=== PATIENT | female | born 1980 ===

== ENCOUNTER 2019-01-21 18:07 | Emergency (ER) | payer MEDICAID ==
[2019-01-21 18:07] VITALS: BMI 32.5
[2019-01-21 18:49] VITALS: BP 128/62; PULSE 79; RESP 16; TEMP 98.8; O2SAT 100
[2019-01-21] MEDS ORDERED: Sodium Chloride 0.9% 1,000 ML IV STA (20:28)
[2019-01-21] MEDS ORDERED: Dexamethasone 10 MG in Sodium Chloride 0.9% 50 ML IV STA (20:28)
[2019-01-21] MEDS ORDERED: Iohexol 300 100 ML IJ ONE (20:52)
[2019-01-21] MEDS ORDERED: Sodium Chloride 0.9% 0 ML IV ONE (20:52)
[2019-01-21 21:08] LABS: BASO # 0.1 K/uL (0.0-0.2); BASO % 0.7 % (0.0-2.0); EOS # 0.1 K/uL (0.0-0.7); EOS % 1.1 % (0.0-4.0); HEMOGLOBIN 13.6 g/dL (12.0-16.0); LYMPH # 2.6 K/uL (1.0-4.3); LYMPH % 20.4 % (20.0-40.0); MEAN CELL VOLUME 91.3 fl (81.0-99.0); MEAN CORPUSCULAR HEMOGLOBIN 30.7 pg (27.0-31.0); MEAN CORPUSCULAR HGB CONC 33.6 g/dL (33.0-37.0); MEAN PLATELET VOLUME 9.5 fl (7.2-11.7); MONO # 0.9 K/uL (0.0-0.8); MONO % 7.2 % (0.0-10.0); NEUT # 8.8 K/uL (1.8-7.0); NEUT % 70.6 % (50.0-75.0); NRBC % 0.1 % (0.0-0.0); RBC 4.42 Mil/uL (3.80-5.20); RED CELL DISTRIBUTION WIDTH 13.2 % (11.5-14.5); WHITE BLOOD COUNT 12.5 K/uL (4.8-10.8)
[2019-01-21 21:16] LABS: ALB/GLOB RATIO 1.1 (1.0-2.1); ALBUMIN 4.1 g/dL (3.5-5.0); ALT/SGPT 29 U/L (9-52); AST/SGOT 20 U/L (14-36); BLOOD UREA NITROGEN 14 mg/dl (7-17); CALCIUM 9.1 mg/dL (8.4-10.2); GFR NON-AFRICAN AMERICAN > 60
[2019-01-21 21:47] LABS: T3 1.58 nmol/L (1.49-2.60)
--- NOTE | 2019-01-21 21:50 | ED PDOC ---
HPI: CCC, URI, Sore Throat Time Seen by Provider: 01/21/19 19:51 Chief Complaint (Nursing): ENT Problem Chief Complaint (Provider): ENT Problem History Per: Patient History/Exam Limitations: no limitations Onset/Duration Of Symptoms: Days (x5) Current Symptoms Are (Timing): Still Present Additional Complaint(s): 38 year old female with past history of cold thyroid nodules, presents to the emergency department with a complaint of left neck mass associated with sore throat, difficulty swallowing, and swelling for 5 days. Patient states she saw her primary doctor yesterday whom prescribed zpack, cough syrup, and flonase. She reports medications has not helped and feels that her symptoms became worse. Otherwise, she denies fever, chills, congestion, cough, weight loss, or receiving flu shot this season. PCP: Dr. Lindsey Joe Past Medical History Reviewed: Historical Data, Nursing Documentation, Vital Signs Vital Signs: Last Vital Signs Temp 98.8 F 01/21/19 18:49 Pulse 79 01/21/19 18:49 Resp 16 01/21/19 18:49 BP 128/62 01/21/19 18:49 Pulse Ox 100 01/21/19 18:49 - Medical History PMH: Arthritis (HANDS), Gastritis, Hyperthyroidism Denies: Depression, Chronic Kidney Disease - Surgical History Surgical History: Cholecystectomy - Family History Family History: States: Unknown Family Hx - Home Medications Home Medications: Ambulatory Orders Medication Instructions Recorded Ibuprofen [Motrin] 600 mg PO Q6 PRN #20 tab 09/30/14 Docusate Sodium [Colace] 100 mg PO Q8 PRN 10/20/14 Oxycodone HCl/Acetaminophen 1 .8 PO Q8 PRN 10/20/14 [Percocet 325 mg-5 mg] Cyclobenzaprine HCl [Flexeril] 10 mg PO BID PRN #12 tab 06/17/15 Ibuprofen [Motrin Tab] 800 mg PO Q6H PRN #20 tab 06/17/15 Oxycodone HCl/Acetaminophen 1 tab PO Q6H PRN #15 tab 06/17/15 [Percocet 325 mg-5 mg] Cyclobenzaprine [Cyclobenzaprine 10 mg PO Q8 PRN #30 tab 01/24/16 HCl] Naproxen [Naprosyn] 500 mg PO BID PRN #30 tab 01/24/16 predniSONE [predniSONE Tab] 60 mg PO QAM #12 tab 01/21/19 - Allergies Allergies/Adverse Reactions: Allergies Allergy/AdvReac Type Severity Reaction Status Date / Time Penicillins Allergy RASH Verified 01/21/19 18:49 Review of Systems ROS Statement: Except As Marked, All Systems Reviewed And Found Negative Constitutional: Negative for: Fever, Chills, Weight loss ENT: Positive for: Throat Pain (with left neck mass). Negative for: Nose Congestion Respiratory: Negative for: Cough Physical Exam - Reviewed Nursing Documentation Reviewed: Yes Vital Signs Reviewed: Yes - Physical Exam Appears: Positive for: No Acute Distress Head Exam: Positive for: ATRAUMATIC, NORMAL INSPECTION, NORMOCEPHALIC Skin: Positive for: Normal Color Eye Exam: Positive for: Normal appearance ENT: Positive for: Pharyngeal Erythema (mild). Negative for: Tonsillar Swelling Neck: Positive for: Supple (4-5cm left lateral mass consistent with enlarged anterior spinal node. (+) tender on palpation but no overlying erythema or warmth) Cardiovascular/Chest: Positive for: Regular Rate, Rhythm Respiratory: Positive for: Normal Breath Sounds. Negative for: Respiratory D istress Neurologic/Psych: Positive for: Alert, Oriented. Negative for: Motor/Sensory Deficits - Laboratory Results Result Diagrams: 01/21/19 20:59 01/21/19 20:59 Lab Results: Total Bilirubin 0.2 mg/dl (0.2-1.3) 01/21/19 20:59 AST 20 U/L (14-36) 01/21/19 20:59 ALT 29 U/L (9-52) 01/21/19 20:59 Alkaline Phosphatase 68 U/L (38-126) 01/21/19 20:59 Total Protein 7.7 G/DL (6.3-8.2) 01/21/19 20:59 Albumin 4.1 g/dL (3.5-5.0) 01/21/19 20:59 Globulin 3.7 gm/dL (2.2-3.9) 01/21/19 20:59 Albumin/Globulin Ratio 1.1 (1.0-2.1) 01/21/19 20:59 - ECG O2 Sat by Pulse Oximetry: 100 (RA) Pulse Ox Interpretation: Normal Medical Decision Making Medical Decision Making: Initial Impression: 38 year old female with neck mass in setting of thyroid nodules. Initial Plan: * Labs * Decadron inj 50ml IV * IV fluids * Toradol 30mg IV * Throat culture * Mccreary * Influenza AB Time: 2135 --Labs reviewed: (+) EBV, otherwise, no significant clinical abnormality. Findings discussed with patient who states that she feels comfortable not to have CT performed. Upon provider reevaluation, patient is medically stable, reports feeling better, and requires no further treatment in the ED at this time. Patient will be discharged home. Counseling was provided and all questions were answered regarding diagnosis. There is agreement to discharge plan. Return if symptoms persist or worsen. Clinical Impression: mononucleosis Scribe Attestation: Documented by Katie Sagastume, acting as a scribe for Héctor Herman MD. Provider Scribe Attestation: All medical record entries made by the Scribe were at my direction and personally dictated by me. I have reviewed the chart and agree that the record accurately reflects my personal performance of the history, physical exam, medical decision making, and the department course for this patient. I have also personally directed, reviewed, and agree with the discharge instructions and disposition. Disposition - Clinical Impression Clinical Impression: Mononucleosis - Patient ED Disposition Is Patient to be Admitted: No Counseled Patient/Family Regarding: Studies Performed, Diagnosis, Rx Given - Disposition Disposition: Routine/Home Disposition Time: 21:36 Condition: STABLE Prescriptions: predniSONE [predniSONE Tab] 60 mg PO QAM #12 tab Instructions: Mononucleosis Forms: [employer] (Mongolian)
== END 2019-01-21 23:07 | disposition home or self-care (01) ==
LOC: H.ER 18:07
DX: B27.90 Infectious mononucleosis, unspecified without complication (principal); Z88.0 Allergy status to penicillin; E05.20 Thyrotoxicosis with toxic multinodular goiter without thyrotoxic crisis or storm
CPT/HCPCS: 80053; 81025; 83605; 83735; 84436; 84443; 84480; 85025; 86308; 87070; 87430; 87804; 96360; 99283; J1100; J1885; J7030

== ENCOUNTER 2019-02-04 18:53 | Emergency (ER) | payer MEDICAID ==
[2019-02-04 18:54] VITALS: BMI 32.5
[2019-02-04] MEDS ORDERED: Tdap Vaccine 0.5 ml Vial (10-64 yrs) IM ONE ×2 (20:17→20:40)
[2019-02-04] MEDS ORDERED: Naproxen 500 MG TAB PO ONE ×2 (20:31→20:40)
--- NOTE | 2019-02-04 20:32 | ED PDOC ---
Upper Extremity Pain/Injury Time Seen by Provider: 02/04/19 20:06 Chief Complaint (Nursing): Finger,Hand,&Wrist Chief Complaint (Provider): left thumb pain History Per: Patient History/Exam Limitations: no limitations Onset/Duration Of Symptoms: Days (4) Current Symptoms Are (Timing): Still Present Additional Complaint(s): 38 y/o female presents for evaluation of pain to left thumb. Patient states she was bitten on bottom of left thumb on 01/22; saw her primary doctor in 01/24 and was prescribed Clindamycin which patient admits to only taking for 4 days before stopping due to stomach upset. Patient states as of 4 days ago she noticed some swelling and pain to tip of thumb. Denies fever, drainage, numbness/weakness left upper extremity. Last tetanus unknown Past Medical History Reviewed: Historical Data, Nursing Documentation, Vital Signs Vital Signs: Last Vital Signs Temp 98.4 F 02/04/19 19:39 Pulse 67 02/04/19 19:39 Resp 16 02/04/19 19:39 BP 132/84 02/04/19 19:39 Pulse Ox 100 02/04/19 19:39 - Medical History PMH: Arthritis (HANDS), Gastritis, Hyperthyroidism Denies: Depression, Chronic Kidney Disease - Surgical History Surgical History: Cholecystectomy - Family History Family History: States: Unknown Family Hx - Home Medications Home Medications: Ambulatory Orders Medication Instructions Recorded Ibuprofen [Motrin] 600 mg PO Q6 PRN #20 tab 09/30/14 Docusate Sodium [Colace] 100 mg PO Q8 PRN 10/20/14 Oxycodone HCl/Acetaminophen 1 .8 PO Q8 PRN 10/20/14 [Percocet 325 mg-5 mg] Cyclobenzaprine HCl [Flexeril] 10 mg PO BID PRN #12 tab 06/17/15 Ibuprofen [Motrin Tab] 800 mg PO Q6H PRN #20 tab 06/17/15 Oxycodone HCl/Acetaminophen 1 tab PO Q6H PRN #15 tab 06/17/15 [Percocet 325 mg-5 mg] Cyclobenzaprine [Cyclobenzaprine 10 mg PO Q8 PRN #30 tab 01/24/16 HCl] Naproxen [Naprosyn] 500 mg PO BID PRN #30 tab 01/24/16 predniSONE [predniSONE Tab] 60 mg PO QAM #12 tab 01/21/19 Naproxen [Naprosyn] 500 mg PO Q12 PRN #14 tablet 02/04/19 - Allergies Allergies/Adverse Reactions: Allergies Allergy/AdvReac Type Severity Reaction Status Date / Time Penicillins Allergy RASH Verified 01/21/19 18:49 Review of Systems ROS Statement: Except As Marked, All Systems Reviewed And Found Negative Musculoskeletal: Positive for: Hand Pain (left thumb) Physical Exam - Reviewed Nursing Documentation Reviewed: Yes Vital Signs Reviewed: Yes - Physical Exam Appears: Positive for: Well, Non-toxic, No Acute Distress Skin: Positive for: Normal Color Pulses-Radial (L): 2+ Pulses-Radial (R): 2+ Extremity: Positive for: Normal ROM, Other (healing bite wound medial aspect proximal left thumb; no drainage, tenderness, surrounding edema/erythema. or streaking noted. + fluid-filled bleb noted lateral aspect distal left thumb, + tenderness. No erythema, warmth, streaking) Neurological/Psych: Positive for: Awake, Alert, Oriented (x3) - ECG O2 Sat by Pulse Oximetry: 100 - Progress ED Course And Treament: -upreg -Adacel IM -Naproxen PO -wound care Area cleaned with alcohol prep pad; small incision made using 25 gauge needle with drainage of clear-fluid Bacitracin applied, bandage applied Patient was instructed on warm soaks and follow up with PMD in 2-3 days Return precautions given, including fever, redness around area, yellow drainage from area, or other concerning symptoms Disposition - Clinical Impression Clinical Impression: Blister of left thumb - Patient ED Disposition Is Patient to be Admitted: No Counseled Patient/Family Regarding: Diagnosis, Need For Followup - Disposition Disposition: Routine/Home Disposition Time: 20:39 Condition: IMPROVED Additional Instructions: Soak left thumb in warm water 3 times daily Follow up with primary doctor in 2-3 days Return to ED for fever, increased pain/swelling, redness to area, yellow yesenia inage from area, or other concerning symptoms Prescriptions: Naproxen [Naprosyn] 500 mg PO Q12 PRN #14 tablet PRN Reason: Pain, Moderate (4-7) Instructions: Blisters
[2019-02-04 22:20] VITALS: BP 129/76; PULSE 72; RESP 18; TEMP 98.2; O2SAT 99
== END 2019-02-04 21:20 | disposition home or self-care (01) ==
LOC: H.ER 18:53
DX: S60.322A Blister (nonthermal) of left thumb, initial encounter (principal); Z23 Encounter for immunization

== ENCOUNTER 2019-04-10 19:55 | Emergency (ER) | payer MEDICAID ==
[2019-04-10 19:55] VITALS: BMI 32.5
--- NOTE | 2019-04-10 20:43 | ED PDOC ---
HPI: Dental Pain/Injury Time Seen by Provider: 04/10/19 20:26 Chief Complaint (Nursing): Dental Pain Chief Complaint (Provider): mouth/face pain History Per: Patient History/Exam Limitations: no limitations Onset/Duration Of Symptoms: Days (2) Current Symptoms Are (Timing): Still Present Additional Complaint(s): 38 y/o female presents for evaluation of left upper mouth and face pain x 2 days. Patient states she had a root canal on (first molar?) on Sunday and was sent home with Clindamycin 150mg Q6H and Ibuprofen 600mg Q4-6H. Patient states that night she noticed pain to left upper mouth and left side of face, with mild swelling. Patient states since then pain and swelling has worsened, went back to Dentist today and was prescribed Tylenol #3 and advised to continue antibiotics but if symptoms worsened to go to ED. Denies fever, vision changes, difficulty speaking/swallowing, neck pain. Last dose Ibuprofen taken prior to arrival. Past Medical History Reviewed: Historical Data, Nursing Documentation, Vital Signs Vital Signs: Last Vital Signs Temp 99.1 F 04/10/19 20:12 Pulse 70 04/10/19 20:12 Resp 18 04/10/19 20:12 BP 136/86 04/10/19 20:12 Pulse Ox 99 04/10/19 20:12 Primary Care Provider: Lindsey Joe - Medical History PMH: Arthritis (HANDS), Gastritis, Hyperthyroidism Denies: Depression, Chronic Kidney Disease - Surgical History Surgical History: Cholecystectomy - Family History Family History: States: Unknown Family Hx - Home Medications Home Medications: Ambulatory Orders Medication Instructions Recorded Ibuprofen [Motrin] 600 mg PO Q6 PRN #20 tab 09/30/14 Docusate Sodium [Colace] 100 mg PO Q8 PRN 10/20/14 Oxycodone HCl/Acetaminophen 1 .8 PO Q8 PRN 10/20/14 [Percocet 325 mg-5 mg] Cyclobenzaprine HCl [Flexeril] 10 mg PO BID PRN #12 tab 06/17/15 Ibuprofen [Motrin Tab] 800 mg PO Q6H PRN #20 tab 06/17/15 Oxycodone HCl/Acetaminophen 1 tab PO Q6H PRN #15 tab 06/17/15 [Percocet 325 mg-5 mg] Cyclobenzaprine [Cyclobenzaprine 10 mg PO Q8 PRN #30 tab 01/24/16 HCl] Naproxen [Naprosyn] 500 mg PO BID PRN #30 tab 01/24/16 predniSONE [predniSONE Tab] 60 mg PO QAM #12 tab 01/21/19 Naproxen [Naprosyn] 500 mg PO Q12 PRN #14 tablet 02/04/19 Clindamycin [Cleocin] 300 mg PO QID #28 cap 04/10/19 Sulfamethoxazole/Trimethoprim 1 tab PO BID #14 tab 04/10/19 [Bactrim DS 800 mg-160 mg] - Allergies Allergies/Adverse Reactions: Allergies Allergy/AdvReac Type Severity Reaction Status Date / Time Penicillins Allergy RASH Verified 01/21/19 18:49 Review of Systems ROS Statement: Except As Marked, All Systems Reviewed And Found Negative ENT: Positive for: Mouth Pain Physical Exam - Reviewed Nursing Documentation Reviewed: Yes Vital Signs Reviewed: Yes - Physical Exam Appears: Positive for: Well, Non-toxic, No Acute Distress Head Exam: Positive for: ATRAUMATIC, NORMAL INSPECTION, NORMOCEPHALIC Skin: Positive for: Normal Color Eye Exam: Positive for: Normal appearance, EOMI, PERRL ENT: Positive for: TM Is/Are (clear bilaterally), Other (Filling noted left upper first molar; + surrounding gingival tenderness. No abscess noted. + left facial edema, erythema extending up to inferior orbit; no fluctuance, crepitus noted) Neck: Positive for: Normal, Painless ROM Cardiovascular/Chest: Positive for: Regular Rate, Rhythm Respiratory: Positive for: Normal Breath Sounds Gastrointestinal/Abdominal: Positive for: Normal Exam Back: Positive for: Normal Inspection Extremity: Positive for: Normal ROM Neurological/Psych: Positive for: Awake, Alert, Oriented (x3) - Laboratory Results Result Diagrams: 04/10/19 20:53 04/10/19 20:53 - ECG O2 Sat by Pulse Oximetry: 99 - Progress ED Course And Treament: -cbc -cmp -lactic acid -blood culture -IV toradol -IV clindamycin Patient states she is feeling better on re-eval Case discussed with ED attending Dr. Neri, will increase clindamycin dose and add bactrim DS Patient educated on findings, discharged with rx Clindamycin (instructed to use in place of current clindamycin rx), Bactrim DS Follow up with Dentist within 2 days REturn precautions, including fever, increase pain/redness/swelling, or other concerning symptoms explained to patient, who demonstrates full understanding Disposition - Clinical Impression Clinical Impression: Dental infection - Patient ED Disposition Is Patient to be Admitted: No Counseled Patient/Family Regarding: Studies Performed, Diagnosis, Need For Followup, Rx Given - Disposition Disposition: Routine/Home Disposition Time: 23:39 Condition: IMPROVED Additional Instructions: Follow up with your Dentist within 2 days Take medication as directed Return to ED for fever, worsening pain/redness/swelling, or other concerning symptoms Prescriptions: Clindamycin [Cleocin] 300 mg PO QID #28 cap Sulfamethoxazole/Trimethoprim [Bactrim DS 800 mg-160 mg] 1 tab PO BID #14 tab Instructions: Dental Pain Forms: [employer] (Mauritian)
[2019-04-10 21:25] LABS: BASO # 0.1 K/uL (0.0-0.2); EOS # 0.1 K/uL (0.0-0.7); EOS % 1.5 % (0.0-4.0); HEMOGLOBIN 13.6 g/dL (12.0-16.0); LYMPH # 2.7 K/uL (1.0-4.3); LYMPH % 28.5 % (20.0-40.0); MEAN CORPUSCULAR HEMOGLOBIN 31.2 pg (27.0-31.0); MEAN CORPUSCULAR HGB CONC 33.9 g/dL (33.0-37.0); MEAN PLATELET VOLUME 9.3 fl (7.2-11.7); MONO # 0.8 K/uL (0.0-0.8); MONO % 8.2 % (0.0-10.0); NEUT # 5.7 K/uL (1.8-7.0); NEUT % 60.8 % (50.0-75.0); NRBC % 0.1 % (0.0-0.0); RBC 4.36 Mil/uL (3.80-5.20); RED CELL DISTRIBUTION WIDTH 13.2 % (11.5-14.5); WHITE BLOOD COUNT 9.3 K/uL (4.8-10.8)
[2019-04-10 21:33] LABS: ALB/GLOB RATIO 1.1 (1.0-2.1); ALBUMIN 4.1 g/dL (3.5-5.0); ALT/SGPT 20 U/L (9-52); AST/SGOT 19 U/L (14-36); BLOOD UREA NITROGEN 11 mg/dl (7-17); CALCIUM 8.8 mg/dL (8.4-10.2); GFR NON-AFRICAN AMERICAN > 60
[2019-04-10] MEDS ORDERED: Clindamycin 600mg/50ml NS 600 MG/50 ML BAG IVPB STA (21:42)
[2019-04-10] MEDS ORDERED: Clindamycin 600mg/50ml D5W 600 MG/50 ML VIAL IVPB STA (22:15)
[2019-04-10 22:43] VITALS: BP 124/75; PULSE 65; RESP 16; TEMP 98.5
[2019-04-10 23:39] VITALS: O2SAT 99
== END 2019-04-10 23:53 | disposition home or self-care (01) ==
LOC: H.ER 19:55
DX: K04.7 Periapical abscess without sinus (principal); E05.90 Thyrotoxicosis, unspecified without thyrotoxic crisis or storm; Z88.0 Allergy status to penicillin
CPT/HCPCS: 80053; 81025; 83605; 85025; 87040; 96374; 96375; 99282; J1885

== ENCOUNTER 2019-04-11 20:53 | Emergency (ER) | payer MEDICAID ==
[2019-04-11 21:19] VITALS: BMI 30.5
[2019-04-11 21:24] VITALS: BP 142/90; PULSE 65; RESP 16; TEMP 99.2; O2SAT 100
[2019-04-11] MEDS ORDERED: Clindamycin 600mg/50ml NS 600 MG/50 ML BAG IVPB STA (21:56)
[2019-04-11] MEDS ORDERED: Sodium Chloride 0.9% 1,000 ML IV STA (21:56)
[2019-04-11 22:43] LABS: VENOUS BLOOD GAS BASE EXCESS -0.3 mmol/L (0.0-2.0); VENOUS BLOOD GAS PCO2 55 mmHg (40-60); VENOUS BLOOD GAS PO2 17 mm/Hg (30-55)
--- NOTE | 2019-04-11 22:47 | ED PDOC ---
HPI: Dental Pain/Injury Time Seen by Provider: 04/11/19 21:30 Chief Complaint (Nursing): Dental Pain Chief Complaint (Provider): Dental Pain History Per: Patient History/Exam Limitations: no limitations Onset/Duration Of Symptoms: Days (x3) Current Symptoms Are (Timing): Still Present Quality: "Pain" Additional Complaint(s): 38 year old female returns today for continued swelling to left face. Patient had a root canal performed on left upper molar x3 days ago. Since then, she has had progressively worsening pain and swelling. She was initially placed on 150 mg of Clindamycin, dosage was changed yesterday in this ED. Patient was advised to return if pain or swelling worsened. PMD: Ted Iglesias Past Medical History Reviewed: Historical Data, Nursing Documentation, Vital Signs Vital Signs: Last Vital Signs Temp 99.2 F 04/11/19 21:20 Pulse 65 04/11/19 21:20 Resp 16 04/11/19 21:20 BP 142/90 04/11/19 21:20 Pulse Ox 100 04/11/19 21:20 Primary Care Provider: Ted Iglesias - Medical History PMH: Arthritis (HANDS), Gastritis, Hyperthyroidism Denies: Depression, Chronic Kidney Disease - Surgical History Surgical History: Cholecystectomy - Family History Family History: States: Unknown Family Hx - Home Medications Home Medications: Ambulatory Orders Medication Instructions Recorded Ibuprofen [Motrin] 600 mg PO Q6 PRN #20 tab 09/30/14 Docusate Sodium [Colace] 100 mg PO Q8 PRN 10/20/14 Oxycodone HCl/Acetaminophen 1 .8 PO Q8 PRN 10/20/14 [Percocet 325 mg-5 mg] Cyclobenzaprine HCl [Flexeril] 10 mg PO BID PRN #12 tab 06/17/15 Ibuprofen [Motrin Tab] 800 mg PO Q6H PRN #20 tab 06/17/15 Oxycodone HCl/Acetaminophen 1 tab PO Q6H PRN #15 tab 06/17/15 [Percocet 325 mg-5 mg] Cyclobenzaprine [Cyclobenzaprine 10 mg PO Q8 PRN #30 tab 01/24/16 HCl] Naproxen [Naprosyn] 500 mg PO BID PRN #30 tab 01/24/16 predniSONE [predniSONE Tab] 60 mg PO QAM #12 tab 01/21/19 Naproxen [Naprosyn] 500 mg PO Q12 PRN #14 tablet 02/04/19 Clindamycin [Cleocin] 300 mg PO QID #28 cap 04/10/19 Sulfamethoxazole/Trimethoprim 1 tab PO BID #14 tab 04/10/19 [Bactrim DS 800 mg-160 mg] Ketorolac Tromethamine [Toradol] 10 mg PO BID #20 tab 04/12/19 - Allergies Allergies/Adverse Reactions: Allergies Allergy/AdvReac Type Severity Reaction Status Date / Time Penicillins Allergy RASH Verified 04/11/19 21:19 Review of Systems ROS Statement: Except As Marked, All Systems Reviewed And Found Negative ENT: Positive for: Other (left upper dental pain) Physical Exam - Reviewed Nursing Documentation Reviewed: Yes Vital Signs Reviewed: Yes - Physical Exam Appears: Positive for: Well Skin: Positive for: Normal Color, Warm, Dry Eye Exam: Positive for: Normal appearance ENT: Positive for: Other (swelling to left maxilla, mild erythema appreciated, no fluctuance on exam, tenderness to gingiva of left upper maxilla) Neurological/Psych: Positive for: Awake, Alert, Oriented (x3) - Laboratory Results Result Diagrams: 04/11/19 22:45 04/11/19 22:45 Lab Results: pO2 17 mm/Hg (30-55) L 04/11/19 22:38 VBG pH 7.30 (7.32-7.43) L 04/11/19 22:38 VBG pCO2 55 mmHg (40-60) 04/11/19 22:38 VBG HCO3 22.6 mmol/L 04/11/19 22:38 VBG Total CO2 28.8 mmol/L (22-28) H 04/11/19 22:38 VBG O2 Sat (Calc) 27.1 % (40-65) L 04/11/19 22:38 VBG Base Excess -0.3 mmol/L (0.0-2.0) L 04/11/19 22:38 VBG Potassium 4.3 mmol/L (3.6-5.2) 04/11/19 22:38 Sodium 138.0 mmol/L (132-148) 04/11/19 22:38 Chloride 105.0 mmol/L (98-107) 04/11/19 22:38 Glucose 87 mg/dL (65-105) 04/11/19 22:38 Lactate 1.4 mmol/L (0.7-2.1) 04/11/19 22:38 FiO2 21.0 % 04/11/19 22:38 - ECG O2 Sat by Pulse Oximetry: 100 (RA) Pulse Ox Interpretation: Normal Medical Decision Making Medical Decision Making: Time: 2155 Impression: possible facial cellulitis vs developing abscess vs normal post- surgical changes Orders: --VBG --CT Maxillofacial CT --BMP --CBC --Clindamycin 600 mg in 50 ml IVBP --IV fluids --Toradol 30 mg IVP --Blood culture [address] CT FINDINGS: BONES: No acute fracture or aggressive appearing osseous lesion. The mandible is intact. SOFT TISSUES: The soft tissues are unremarkable. SINUSES: Mucoperiosteal thickening is seen in the left maxillary sinus compatible with sinusitis. The remaining sinuses are clear. ORBITS: The orbits are normal. No retrobulbar hematoma or mass. IMPRESSION: Unremarkable maxillofacial CT. Patient reports some resolution of pain but still some. Advised patient to see dentistry as soon as possible. Advised patient to continue current antibiotic r egimen. Well appearing, eating apple sauce upon discharge. Scribe Attestation: Documented by Michelle Samuel, acting as a scribe for Jim Oconnor MD. Provider Scribe Attestation: All medical record entries made by the Scribe were at my direction and personally dictated by me. I have reviewed the chart and agree that the record accurately reflects my personal performance of the history, physical exam, m edical decision making, and the department course for this patient. I have also personally directed, reviewed, and agree with the discharge instructions and disposition. Disposition - Clinical Impression Clinical Impression: Dental infection - Patient ED Disposition Is Patient to be Admitted: No Counseled Patient/Family Regarding: Studies Performed, Diagnosis, Need For Followup, Rx Given - Disposition Referrals: Ted Iglesias MD [Family Provider] - Disposition Time: 00:08 Condition: IMPROVED Prescriptions: Ketorolac Tromethamine [Toradol] 10 mg PO BID #20 tab Instructions: Dental Pain (DC) Forms: [employer] ([place])
[2019-04-11 22:59] LABS: BASO % 0.3 % (0.0-2.0); EOS # 0.1 K/uL (0.0-0.7); EOS % 1.2 % (0.0-4.0); HEMOGLOBIN 13.1 g/dL (12.0-16.0); LYMPH # 1.8 K/uL (1.0-4.3); LYMPH % 19.4 % (20.0-40.0); MEAN CELL VOLUME 90.5 fl (81.0-99.0); MEAN CORPUSCULAR HEMOGLOBIN 31.5 pg (27.0-31.0); MEAN CORPUSCULAR HGB CONC 34.8 g/dL (33.0-37.0); MEAN PLATELET VOLUME 9.5 fl (7.2-11.7); MONO # 0.7 K/uL (0.0-0.8); MONO % 7.7 % (0.0-10.0); NEUT # 6.7 K/uL (1.8-7.0); NEUT % 71.4 % (50.0-75.0); NRBC % 0.1 % (0.0-0.0); RBC 4.16 Mil/uL (3.80-5.20); RED CELL DISTRIBUTION WIDTH 13.3 % (11.5-14.5); WHITE BLOOD COUNT 9.5 K/uL (4.8-10.8)
[2019-04-11 23:03] LABS: BLOOD UREA NITROGEN 12 mg/dl (7-17); CALCIUM 8.8 mg/dL (8.4-10.2); GFR NON-AFRICAN AMERICAN > 60
[2019-04-11] MEDS ORDERED: Iohexol 300 100 ML IJ ONE (23:06)
[2019-04-11] MEDS ORDERED: Sodium Chloride 0.9% 50 ML IV ONE (23:06)
[2019-04-12] MEDS ORDERED: Oxycodone/Acetaminophen 5/325 mg Tab PO STA (00:35)
--- NOTE | 2019-04-12 12:26 | CT ---
Date of service: 04/11/2019 PROCEDURE: CT MAXILLOFACIAL BONES WITH CONTRAST HISTORY: dental infection, facial swelling COMPARISON: None. TECHNIQUE: Contiguous axial CT images of the maxillofacial bones were obtained following administration of IV contrast. Coronal and sagittal reformats were generated. Intravenous contrast Dose: Omnipaque 300, 85 cc Radiation dose: Total exam DLP = 735.66 mGy-cm. This CT exam was performed using one or more of the following dose reduction techniques: Automated exposure control, adjustment of the mA and/or kV according to patient size, and/or use of iterative reconstruction technique. FINDINGS: There is extensive artifact related to dental hardware at the maxilla, left greater than right with limited evaluation of the soft tissue significantly. No definitive facial abscess is appreciated including the soft tissues overlying the mandible and maxilla, however, mild but significant cellulitis type soft tissue changes are appreciated at the inferior left maxilla more so anteromedially than posterior laterally. There is a superficial cortical discontinuity identified related to an apical root lucency likely reflecting an abscess breaking through the cortex at the likely 1st premolar root, favored over maxillary left lateral canine. Further clinical correlation is advised. A larger apical root abscess is also broken through the anterior cortex related to the low maxillary left lateral incisor. Finally, additional lucency is seen related to the roots of the maxillary left 2nd premolar likely reflecting developing apical root abscess. This does not appear to have definitively broken through the cortex laterally though this is a borderline appearance. NASAL BONES: Unremarkable. ORBITS: Unremarkable. PARANASAL SINUSES/ MASTOIDS: Minimal left maxillary sinus disease. MAXILLA: Unremarkable. MANDIBLE/ TEMPOROMANDIBULAR JOINTS: Unremarkable. SKULL BASE: Unremarkable. TEMPORAL BONES: Middle ears and mastoid grossly unremarkable. OTHER FINDINGS: None. IMPRESSION: 1. Multiple apical root abscesses are identified related to left maxillary teeth including left lateral incisor, left canine or 1st premolar as well as left 2nd premolar. The 2nd premolar appears least advanced. Cortical lucency indicates breakthrough at the more anterior to teeth and is borderline at the 2nd premolar. Local anteromedial left maxillary cellulitis type soft tissue changes are apparent, though mild and without definitive abscess appreciated at this time. 2. No additional acute findings. Discordant preliminary report from [facility] which does not indicate left maxillary cellulitis or apical root abscesses left maxilla. Preliminary report provided by [employer], 04/12/2019, 12:08 a.m.. Findings discussed with Nurse Practitioner Marlin with written down and read back verification 04/12/2019, 12:15 p.m..
== END 2019-04-12 01:04 | disposition home or self-care (01) ==
LOC: H.ER 20:53
DX: K04.7 Periapical abscess without sinus (principal); E05.90 Thyrotoxicosis, unspecified without thyrotoxic crisis or storm; Z88.0 Allergy status to penicillin
CPT/HCPCS: 70488; 80048; 82803; 85025; 87040; 96361; 96374; 96375; 99282; J1885; J7030; Q9967